=== PATIENT | male | born 1980 | race Caucasian/White ===

== ENCOUNTER 2025-02-15 23:26 | Emergency (ER) | payer MEDICARE, OTHER ==
[2025-02-15] MEDS: Ampicillin/Sulbactam Na 3 GM in Sodium Chloride 0.9% 100 ML IV ONE (23:58)
[2025-02-16 00:28] LABS: BASOPHILS ABSOLUTE AUTO 0.07 K/uL (0.00-0.20); BASOPHILS PERCENT AUTO 0.5 % (0.0-1.0); EOSINOPHILS ABSOLUTE AUTO 0.37 K/uL (0.00-0.45); EOSINOPHILS PERCENT AUTO 2.6 % (0.0-6.0); IMMATURE GRAN ABSOLUTE AUTO 0.05 K/uL (0.00-0.05); IMMATURE GRAN PERCENT AUTO 0.3 % (0.0-0.4); LYMPHOCYTES ABSOLUTE AUTO 2.52 K/uL (1.00-4.80); LYMPHOCYTES PERCENT AUTO 17.6 % (24.0-44.0); MEAN PLATELET VOLUME 10.1 fL (9.4-12.4); MONOCYTES ABSOLUTE AUTO 0.70 K/uL (0.00-0.80); MONOCYTES PERCENT AUTO 4.9 % (0.0-8.0); NEUTROPHILS ABSOLUTE AUTO 10.58 K/uL (1.80-7.70); NEUTROPHILS PERCENT AUTO 74.1 % (41.0-71.0); NRBC ABSOLUTE 0.00 K/uL (0.00-0.02); NRBC PERCENT 0.0 /100WBC (0.0-0.2); PLATELET COUNT,PLT 257 K/uL (150-400); RED BLOOD CELL COUNT 5.12 M/uL (4.52-5.90); WHITE BLOOD CELL COUNT,WBC 14.29 K/uL (3.9-11.3)
[2025-02-16 00:34] LABS: A/G RATIO 0.9 (0.9-1.6); ALANINE AMINOTRANSFERASE,ALT 25 IU/L (14-63); ASPARTATE AMNIOTRANSFERASE,AST 10 IU/L (15-37); BILIRUBIN TOTAL 0.5 mg/dL (0.2-1.0); BLOOD UREA NITROGEN,BUN 11 mg/dL (7.0-18.0); CARBON DIOXIDE,CO2 28.4 mmol/L (21.0-32.0); CHLORIDE,CL 98 mmol/L (98-107); CREATININE 1.2 mg/dL (0.8-1.3); GLUCOSE RANDOM 180 mg/dL (74-106); POTASSIUM,K 3.7 mmol/L (3.5-5.1); PROTEIN TOTAL,TP 7.4 g/dL (6.4-8.2); SODIUM,NA 137 mmol/L (136-148)
[2025-02-16 00:37] LABS: ESTIMATED GFR 76 mL/min (>60)
[2025-02-16] MEDS: Iopamidol 755 Mg/ML 100 ML Bottle IVPUSH ONE (00:41)
== END 2025-02-16 01:15 | disposition home or self-care (01) ==
LOC: MW.ED 23:26
DX: L03.211 Cellulitis of face (principal); K02.9 Dental caries, unspecified; K04.7 Periapical abscess without sinus; R03.0 Elevated blood-pressure reading, without diagnosis of hypertension; Z86.59 Personal history of other mental and behavioral disorders; Z79.899 Other long term (current) drug therapy
CPT/HCPCS: 36415; 70487; 80053; 82947; 83036; 85025; 85652; 86140; 87040; 96361; 96365; 96375; 99284; J0295; J1100; J7030; Q9967; 99283